=== PATIENT | male | born 1990 | race African-American/Black ===

== ENCOUNTER 2017-02-08 16:03 | Emergency (ER) | payer SELFPAY ==
[~2017-02-08] VITALS: Ht 182.9 cm; Wt 105.0 kg
[~2017-02-08 16:03] MED LIST: Z.0.NO CURRENT MEDS
[2017-02-08 16:05] VITALS: BP 139/86; PULSE 66; RESP 20; TEMP 98.4; O2SAT 99
--- NOTE | 2017-02-08 16:43 | PD ---
HPI Chief Complaint: Complaint Time Seen by Provider: 16:38 Travel History International Travel<30 days: No Contact w/Intl Traveler<30days: No Traveled to known affect area: No History of Present Illness HPI 26 her old male presents for evaluation of testicle pain. Symptoms started 4 months ago. He describes it as a squeezing pain which has been constant but is gradually getting worse. No obvious aggravating or relieving factors. He reports that the pain radiates into his lower back and lower abdomen. Denies dysuria, urethral discharge, nausea or vomiting, fevers or chills. He reports that he was seen about this issue in an emergency room in [place] and had an x- ray of his lower back as well as "STD testing" which was all normal. He reports that he has not been sexually active in approximately 3 months prior to that he had 2 different partners. [facility] Social History Alcohol Use: No Tobacco Use: No Allergies-Medications (Allergen,Severity, Reaction): Coded Allergies: Sulfa (Verified Allergy, Intermediate, JUNITO, 08/02/06) Reported Meds & Prescriptions Reported Meds & Active Scripts Active Reported No Current Meds (Miscellaneous Medication) [facility] [place] Review of Systems Except as stated in HPI: all other systems reviewed are Neg Physical Exam Narrative GENERAL: Well-developed well-nourished male in no acute distress SKIN: Warm and dry. HEAD: Atraumatic. Normocephalic. EYES: Pupils equal and round. No scleral icterus. No injection or drainage. ENT: No nasal bleeding or discharge. Mucous membranes pink and moist. NECK: Trachea midline. No JVD. CARDIOVASCULAR: Regular rate and rhythm. No murmur appreciated. RESPIRATORY: No accessory muscle use. Clear to auscultation. Breath sounds equal bilaterally. GASTROINTESTINAL: Abdomen soft, non-tender, nondistended. Hepatic and splenic margins not palpable. There is no testicle or scrotal pain. No palpable inguinal hernia. No urethral discharge. MUSCULOSKELETAL: No obvious deformities. There is no tenderness to palpation of the lower back or the paravertebral musculature. NEUROLOGICAL: Awake and alert. No obvious cranial nerve deficits. Motor grossly within normal limits. Normal speech. Data Data Last Documented VS Vital Signs Date Time Temp Pulse Resp B/P Pulse Ox O2 Delivery O2 Flow Rate FiO2 02/08/17 16:05 98.4 66 20 139/86 99 Orders Urinalysis - C+S If Indicated (02/08/17 16:51) Us Testicles W Doppler (02/08/17 16:51) Labs Laboratory Tests Test 02/08/17 17:05 Urine Color LIGHT-YELLOW Urine Turbidity CLEAR Urine pH 6.5 Urine Specific [place] 1.010 Urine Protein NEG mg/dL Urine Glucose (UA) NEG mg/dL Urine Ketones NEG mg/dL Urine Occult Blood NEG Urine Nitrite NEG Urine Bilirubin NEG Urine Urobilinogen LESS THAN 2.0 MG/DL Urine Leukocyte Esterase NEG Urine RBC LESS THAN 1 /hpf Urine WBC 2 /hpf Microscopic Urinalysis Comment CULT NOT INDICATED MDM Medical Decision Making Medical Screen Exam Complete: Yes Emergency Medical Condition: Yes Medical Record Reviewed: Yes Interpretation(s) CONCLUSION: 1. Bilateral varicoceles, small on the right and moderate to large on the left. 2. Normal testes. No torsion. Differential Diagnosis Epididymitis, orchitis, testicular torsion, inguinal hernia Narrative Course 26 year old male presents with a squeezing pain in both testicles that radiates into the lower abdomen and back the past 4 months. Physical examination is reassuring. He has no tenderness to palpation of the back, abdomen or testicles or scrotum. No obvious abnormalities. Urinalysis was unremarkable. Ultrasound of the scrotum reveals bilateral varicoceles, left greater than right. This could be the etiology of this patient's chronic discomfort. Recommended outpatient follow-up with a urologist. He was given a copy of his ultrasound report. Diagnosis Primary Impression: Bilateral varicoceles Referrals: Urologist Additional Instructions: Follow-up with a urologist. Take Tylenol or Motrin for discomfort. Return for any emergent medical conditions. Med/Other Pt SpecificInfo: No Change to Meds Disposition: 01 DISCHARGE HOME Condition: Stable Steven Ahn Feb 08, 2017 16:43
[2017-02-08 17:29] LABS: BLOOD, URINE NEG (NEG); GLUCOSE,URINE NEG (NEG); KETONE, URINE NEG (NEG); NITRITE,URINE NEG (NEG); PH, URINE 6.5 (5.0-8.5); URINE COLOR LIGHT-YELLOW (YELLW/STRAW)
[2017-02-08 17:52] LABS: COMMENT (UR) CULT NOT INDICATED; CULTURE IF INDICATED CULT NOT INDICATED
--- NOTE | 2017-02-08 18:09 | RADRPT ---
EXAM DATE/TIME: 02/08/2017 17:18 [place] COMPARISON: No previous studies available for comparison. INDICATIONS : Testicular pain. MEDICAL HISTORY : Testicular pain. SURGICAL HISTORY : No known previous surgical history. ENCOUNTER: Initial ACUITY: 2 days PAIN SCORE: 8/10 LOCATION: Bilateral scrotum. MEASUREMENTS: RIGHT TESTICLE: 3.2 x 2.4 x 1.9cm LEFT TESTICLE: 3.1 x 2.6 x 1.8cm FINDINGS: RIGHT TESTICLE: Homogeneous echotexture without intra or extratesticular mass. Blood flow is symmetric and within no rmal limits. No hydrocele. There is a small varicocele. Epididymis is within normal limits. LEFT TESTICLE: Homogeneous echotexture without intra or extratesticular mass. Blood flow is symmetric and within no rmal limits. No hydrocele. There is a moderate to large varicocele. Epididymis is within normal limi ts. SCROTUM: Within normal limits. CONCLUSION: 1. Bilateral varicoceles, small on the right and moderate to large on the left. 2. Normal testes. No torsion. Ebenezer Valdivia MD on February 08, 2017 at 18:07 Board Certified Radiologist. This report was verified electronically.
[2017-02-08 18:44] VITALS: BP 119/69
== END 2017-02-08 18:45 | disposition home or self-care (01) ==
LOC: NETRI 16:03
DX: I86.1 Scrotal varices (principal)
CPT/HCPCS: 76870; 81001; 93975

== ENCOUNTER 2017-06-04 08:14 | Inpatient (IN) | payer SELFPAY ==
[2017-06-04] VITALS (9 sets, daily range): BP systolic 148–162; BP diastolic 81–102; PULSE 62–102; RESP 16–21; TEMP 97.8–98.4; O2SAT 93–100
[~2017-06-04] VITALS: Ht 185.4 cm; Wt 121.0 kg
[2017-06-04] MEDS ORDERED: SODIUM CHLOR 0.9% 1000 ML INJ 1,000 ML IV SCH ×2 (08:29→09:42)
[2017-06-04] MEDS ORDERED: ONDANSETRON HCL 4 MG/2 ML VIAL IVP ONE (08:30)
[2017-06-04] MEDS ORDERED: SODIUM CHLORIDE 0.9% FLUSH 10 ML FLUSH IV FLUSH PRN (08:30)
--- NOTE | 2017-06-04 08:46 | PD ---
HPI Chief Complaint: Chest Pain Time Seen by Provider: 08:41 Travel History International Travel<30 days: No Contact w/Intl Traveler<30days: No Traveled to known affect area: No History of Present Illness HPI 27-year-old male patient with family history of father with diabetes, presents to the ER today for 2 weeks' history of frequent thirst, urinating more often, nausea, vomiting, feeling tired. He states it is getting so bad that he had to sit down the shower last night. He denies any fevers or any other issues. Modifying Factors: None Associated Signs & Symptoms: Nausea, vomiting, frequent urination, increase drinking, feeling tired Risk Factors: History of diabetes in the family PFSH Social History Alcohol Use: No Tobacco Use: Yes Substance Use: No Allergies-Medications (Allergen,Severity, Reaction): Coded Allergies: Sulfa (Verified Allergy, Intermediate, JUNITO, 06/04/17) Reported Meds & Prescriptions Reported Meds & Active Scripts Active No Active Prescriptions or Reported Medications Review of Systems Except as stated in HPI: all other systems reviewed are Neg Physical Exam Narrative GENERAL: Well-developed young after [place] male patient currently in moderate distress. Awake and oriented 3. SKIN: Focused skin assessment warm/dry. HEAD: Atraumatic. Normocephalic. EYES: Pupils equal and round. No scleral icterus. No injection or drainage. ENT: No nasal bleeding or discharge. Mucous membranes pink and dry. NECK: Trachea midline. No JVD. CARDIOVASCULAR: Regular rate and rhythm. No murmur appreciated. RESPIRATORY: No accessory muscle use. Clear to auscultation. Breath sounds equal bilaterally. GASTROINTESTINAL: Abdomen soft, non-tender, nondistended. Hepatic and splenic margins not palpable. MUSCULOSKELETAL: No obvious deformities. No clubbing. No cyanosis. No edema. NEUROLOGICAL: Awake and alert. No obvious cranial nerve deficits. Motor grossly within normal limits. Normal speech. PSYCHIATRIC: Appropriate mood and affect; insight and judgment normal. Data Data Last Documented VS Vital Signs Date Time Temp Pulse Resp B/P Pulse Ox O2 Delivery O2 Flow Rate FiO2 06/04/17 08:34 97 Room Air 06/04/17 08:16 97.8 62 20 162/95 Orders Complete Blood Count With Diff (06/04/17 08:29) Comprehensive Metabolic Panel (06/04/17 08:29) Lipase (06/04/17 08:29) Urinalysis - C+S If Indicated (06/04/17 08:29) Iv Access Insert/Monitor (06/04/17 08:29) Ecg Monitoring (06/04/17 08:29) Oximetry (06/04/17 08:29) Ondansetron Inj (Zofran Inj) (06/04/17 08:30) Sodium Chlor 0.9% 1000 Ml Inj (Ns 1000 M (06/04/17 08:29) Sodium Chloride 0.9% Flush (Ns Flush) (06/04/17 08:30) Electrocardiogram (06/04/17 08:29) Beta Hydroxybutyrate (Acetone) (06/04/17 08:35) Drug Enforcement Administration Agent / Telemetry [email or web address] (06/04/17 09:42) ^ Insert Iv (06/04/17 09:42) Diet Npo (06/04/17 Breakfast) Sodium Chlor 0.9% 1000 Ml Inj (Ns 1000 M (06/04/17 09:42) Dext 5%-Nacl 0.9% 1000 Ml Inj (D5w-Ns 10 (06/04/17 09:42) Insulin Human Regular Inj (Novolin R Inj (06/04/17 09:45) Insulin Regular (Iv Infusion) (Novolin R (06/04/17 09:45) Potassium Chlor 40 Meq Premix (Kcl 40 Me (06/04/17 09:45) Potassium Chlor 40 Meq Premix (Kcl 40 Me (06/04/17 09:45) Potassium Chlor 20 Meq Premix (Kcl 20 Me (06/04/17 09:45) Potassium Chlor 20 Meq Premix (Kcl 20 Me (06/04/17 09:45) Potassium Chlor 20 Meq Premix (Kcl 20 Me (06/04/17 09:45) Potassium Chlor 20 Meq Premix (Kcl 20 Me (06/04/17 09:45) Potassium Chlor 20 Meq Premix (Kcl 20 Me (06/04/17 09:45) Potassium Chlor 20 Meq Premix (Kcl 20 Me (06/04/17 09:45) Sodium Bicarbonate 8.4% Inj (Sodium Bica (06/04/17 09:45) Sodium Bicarbonate 8.4% Inj (Sodium Bica (06/04/17 09:45) Sodium Phosphate Inj (Sodium Phosphate I (06/04/17 09:45) Hemoglobin (Hgb) A1c (06/04/17 09:42) Basic Metabolic Panel (Bmp) (06/04/17 14:42) Basic Metabolic Panel (Bmp) (06/04/17 20:42) Basic Metabolic Panel (Bmp) (06/05/17 02:42) Basic Metabolic Panel (Bmp) (06/05/17 08:42) Magnesium (Mg) (06/04/17 14:42) Magnesium (Mg) (06/04/17 20:42) Magnesium (Mg) (06/05/17 02:42) Magnesium (Mg) (06/05/17 08:42) Phosphorus (Po4) (06/04/17 14:42) Phosphorus (Po4) (06/04/17 20:42) Phosphorus (Po4) (06/05/17 02:42) Phosphorus (Po4) (06/05/17 08:42) Beta Hydroxybutyrate (Acetone) (06/04/17 20:42) Beta Hydroxybutyrate (Acetone) (06/05/17 08:42) Arterial Blood Gas (Abg) (06/04/17 09:45) Vital Signs (Adult) [email or web address].[email or web address] (06/04/17 10:13) Ondansetron Inj (Zofran Inj) (06/04/17 10:15) Hemoglobin (Hgb) A1c (06/04/17 10:14) Consult Optomechanical Engineer (06/04/17 ) Admit Order (Ed Use Only) (06/04/17 10:15) Labs Laboratory Tests Test 06/04/17 06/04/17 08:35 09:59 White Blood Count 9.0 TH/MM3 Red Blood Count 6.09 MIL/MM3 Hemoglobin 17.2 GM/DL Hematocrit 54.0 % Mean Corpuscular Volume 88.7 FL Mean Corpuscular Hemoglobin 28.3 PG Mean Corpuscular Hemoglobin 31.9 % Concent Red Cell Distribution Width 14.2 % Platelet Count 230 TH/MM3 Mean Platelet Volume 9.9 FL Neutrophils (%) (Auto) 66.7 % Lymphocytes (%) (Auto) 24.5 % Monocytes (%) (Auto) 7.9 % Eosinophils (%) (Auto) 0.2 % Basophils (%) (Auto) 0.7 % Neutrophils # (Auto) 6.0 TH/MM3 Lymphocytes # (Auto) 2.2 TH/MM3 Monocytes # (Auto) 0.7 TH/MM3 Eosinophils # (Auto) 0.0 TH/MM3 Basophils # (Auto) 0.1 TH/MM3 CBC Comment DIFF FINAL Differential Comment Urine Color LIGHT-YELLOW Urine Turbidity CLEAR Urine pH 5.0 Urine Specific [place] 1.031 Urine Protein NEG mg/dL Urine Glucose (UA) 1000 mg/dL Urine Ketones 40 mg/dL Urine Occult Blood NEG Urine Nitrite NEG Urine Bilirubin NEGATIVE Urine Urobilinogen LESS THAN 2.0 MG/DL Urine Leukocyte Esterase NEGATIVE Urine RBC LESS THAN 1 /hpf Urine WBC 1 /hpf Microscopic Urinalysis Comment CULT NOT INDICATED Sodium Level 129 MEQ/L Potassium Level 4.1 MEQ/L Chloride Level 90 MEQ/L Carbon Dioxide Level 24.0 MEQ/L Anion Gap 15 MEQ/L Blood Urea Nitrogen 12 MG/DL Creatinine 1.46 MG/DL Estimat Glomerular Filtration 70 ML/MIN Rate Random Glucose 839 MG/DL Calcium Level 9.9 MG/DL Total Bilirubin 0.9 MG/DL Aspartate Amino Transf 18 U/L (AST/SGOT) Alanine Aminotransferase 49 U/L (ALT/SGPT) Alkaline Phosphatase 184 U/L Total Protein 9.2 GM/DL Albumin 4.5 GM/DL Lipase 126 U/L B-Hydroxybutyrate 4.41 MMOL/L Blood Gas Puncture Site LT RADIAL Blood Gas Patient Temperature 98.6 Blood Gas HCO3 19 mmol/L Blood Gas Base Excess -5.7 mmol/L Blood Gas Oxygen Saturation 95 % Arterial Blood pH 7.36 Arterial Blood Partial 34 mmHg Pressure CO2 Arterial Blood Partial 96 mmHG Pressure O2 Arterial Blood Oxygen Content 21.8 Vol % Arterial Blood 1.4 % Carboxyhemoglobin Arterial Blood Methemoglobin 0.8 % Blood Gas Hemoglobin 16.3 G/DL Oxygen Delivery Device ROOM AIR Blood Gas Inspired Oxygen 21 % [facility] Medical Decision Making Medical Screen Exam Complete: Yes Emergency Medical Condition: Yes Medical Record Reviewed: Yes Interpretation(s) EKG shows normal sinus rhythm with sinus arrhythmia at a rate of 74 beats per minutes. Laboratory Tests Test 06/04/17 06/04/17 08:35 09:59 Red Blood Count 6.09 MIL/MM3 (4.50-5.90) Hemoglobin 17.2 GM/DL (13.0-17.0) Hematocrit 54.0 % (39.0-51.0) Mean Corpuscular Hemoglobin 31.9 % Concent (32.0-36.0) Urine Glucose (UA) 1000 mg/dL (NEG) Urine Ketones 40 mg/dL (NEG) Sodium Level 129 MEQ/L (136-145) Chloride Level 90 MEQ/L (98-107) Creatinine 1.46 MG/DL (0.60-1.30) Estimat Glomerular Filtration 70 ML/MIN (>89) Rate Random Glucose 839 MG/DL (74-106) Alkaline Phosphatase 184 U/L (45-117) Total Protein 9.2 GM/DL (6.4-8.2) B-Hydroxybutyrate 4.41 MMOL/L (0.00-0.39) Blood Gas HCO3 19 mmol/L (22-26) Blood Gas Base Excess -5.7 mmol/L (-2-2) Arterial Blood pH 7.36 (7.380-7.420) Arterial Blood Partial 34 mmHg (38-42) Pressure CO2 Arterial Blood Oxygen Content 21.8 Vol % (12.0-20.0) Blood Gas Hemoglobin 16.3 G/DL (12.0-16.0) Differential Diagnosis Nausea, vomiting, general weaknesshyperglycemia versus DKA versus electrolyte abnormalities versus dehydration versus gastroenteritis versus other acute intra -abdominal processes Narrative Course EKG did not show significant dysrhythmias other than sinus arrhythmia. Lab work shows significant hyperglycemia and ketone elevation indicative of DKA. DKA protocol and IV fluids initiated in the ER. At this point, my plan would be to admit the patient for further treatment for DKA and he wants the diabetes. Case was discussed with Dr. Franklin for admission. Aggregate critical care time was 30 minutes. Time to perform other separately billable procedures was not included in the critical care time. My time did not include minutes spent treating any other patients simultaneously or on activities that did not directly contribute to the patient's treatment. The services I provided to this patient were to treat and/or prevent clinically significant deterioration that could result in: Worsening mental acidosis, dysrhythmias, I provided critical care services requiring my management, as noted below: Chart data review, documentation time, medication orders and management, vital sign assessments/reviewing monitor data, ordering and reviewing lab tests, ordering and interpreting/reviewing x-rays and diagnostic studies, care of the patient and discussion of the patient with the admitting physicians. Diagnosis Primary Impression: DKA (diabetic ketoacidoses) Additional Impression: Diabetes mellitus, new onset Admitting Information Admitting Physician Requests: Admit Scripts No Active Prescriptions or Reported Meds Nelia Campoverde MD Jun 04, 2017 08:46
[2017-06-04 08:52] LABS: BASOPHIL # 0.1 TH/MM3 (0-0.2); BASOPHIL % 0.7 % (0.0-2.0); EOSINOPHIL % 0.2 % (0.0-4.0); HEMO FLAGS DIFF FINAL; LYMPH % 24.5 % (9.0-44.0); LYMPHOCYTE # 2.2 TH/MM3 (1.0-4.8); MEAN CELL VOLUME 88.7 FL (80.0-100.0); MEAN CORPUSCULAR HEMOGLOBIN 28.3 PG (27.0-34.0); MEAN CORPUSCULAR HGB CONC 31.9 % (32.0-36.0); MONO % 7.9 % (0.0-8.0); NEUT % 66.7 % (16.0-70.0); PLATELET COUNT 230 TH/MM3 (150-450); RED BLOOD COUNT 6.09 MIL/MM3 (4.50-5.90); RED CELL DISTRIBUTION WIDTH 14.2 % (11.6-17.2)
[2017-06-04 09:28] LABS: COMMENT (UR) CULT NOT INDICATED; CULTURE IF INDICATED CULT NOT INDICATED; GLUCOSE,URINE 1000 mg/dL (NEG); KETONE, URINE 40 mg/dL (NEG); URINE COLOR LIGHT-YELLOW (YELLW/STRAW)
[2017-06-04 09:29] LABS: BLOOD, URINE NEG (NEG); NITRITE,URINE NEG (NEG)
[2017-06-04 09:31] LABS: ALKALINE PHOSPHATASE 184 U/L (45-117); ALT (GPT) 49 U/L (12-78); ANION GAP 15 MEQ/L (5-15); AST (GOT) 18 U/L (15-37); BETA-HYDROXYBUTYRATE 4.41 MMOL/L (0.00-0.39); BLOOD UREA NITROGEN 12 MG/DL (7-18); CHLORIDE 90 MEQ/L (98-107); GLOMERULAR FILTRATION RATE 70 ML/MIN (>89); SODIUM (NA) 129 MEQ/L (136-145); TOTAL BILIRUBIN ADULT 0.9 MG/DL (0.2-1.0)
[2017-06-04 09:33] LABS: POTASSIUM 4.1 MEQ/L (3.5-5.1)
[2017-06-04] MEDS ORDERED: DEXT 5%-NACL 0.9% 1000 ML INJ 1,000 ML IV SCH (09:42)
[2017-06-04] MEDS ORDERED: INSULIN HUMAN REGULAR 1,000 UNITS/10 ML VIAL IV PUSH ONE (09:45)
[2017-06-04] MEDS ORDERED: POTASSIUM CHLOR 20 MEQ PREMIX 100 ML IV PRN ×6 (09:45)
[2017-06-04] MEDS ORDERED: SODIUM PHOSPHATE INJ 15 MMOL in SODIUM CHLORIDE 0.9% INJ 100 ML IV PRN (09:45)
[2017-06-04] MEDS ORDERED: SODIUM BICARBONATE 8.4% SOLN 50 MEQ/50 ML VIAL IV PRN ×2 (09:45)
[2017-06-04] MEDS ORDERED: INSULIN REGULAR (IV INFUSION) 100 UNITS in SODIUM CHLORIDE 0.9% INJ 99 ML IV SCH (09:45)
[2017-06-04] MEDS ORDERED: POTASSIUM CHLOR 40 MEQ PREMIX 100 ML IV PRN ×2 (09:45)
[2017-06-04 10:09] LABS: BLOOD GAS BASE EXCESS -5.7 mmol/L (-2-2); BLOOD GAS CARBOXYHEMOGLOBIN 1.4 % (0-4); BLOOD GAS HCO3 19 mmol/L (22-26); BLOOD GAS METHEMOGLOBIN 0.8 % (0-2); BLOOD GAS O2 HGB SATURATION 95 % (90-100); BLOOD GAS OXYGEN CONTENT 21.8 Vol % (12.0-20.0); BLOOD GAS PCO2 34 mmHg (38-42); BLOOD GAS PO2 96 mmHG (61-120); BLOOD GAS TOTAL HGB 16.3 G/DL (12.0-16.0); TEMP CORR TO 98.6
[2017-06-04 10:10] LABS: CRITICAL VALUE NO; DRAW SITE LT RADIAL; FIO2 21 %; NUMBER OF ARTERIAL PUNCTURES 1; OXYGEN DEVICE ROOM AIR; STAT YES
[2017-06-04] MEDS ORDERED: ONDANSETRON HCL 4 MG/2 ML VIAL IV PUSH PRN (10:15)
--- NOTE | 2017-06-04 10:56 | HHI.HP ---
[facility] Primary [facility] Physician No Primary Care Physician Admission Diagnosis DKA/new onset diabetes Diagnoses: (1) DKA (diabetic ketoacidoses) Diagnosis: Principal (2) Diabetes mellitus, new onset Diagnosis: Principal Chief Complaint: ' I feel weak'. Travel History International Travel<30 Days: No Contact w/Intl Traveler <30 Da: No Traveled to Known Affected Are: No History of Present Illness patient is a 27 y/o male with no significant past medical history who presented to ER with generalized weakness. he says that over the past two weeks he's been feeling thirsty all the time and had urinary frequency. he's lost about ten pounds over the past two-three weeks.he says that he's been feeling so weak that he couldn't stand up in the shower today. he had some blurred vision earlier.he had mild abdominal pain and nausea. he denies any history of diabetes. Review of Systems Constitutional: COMPLAINS OF: Fatigue, DENIES: Fever, Weight loss, Chills, Night Sweats Eyes: COMPLAINS OF: Blurred vision, DENIES: Diplopia, Vision loss, Double Vision Ears, nose, mouth, throat: DENIES: Tinnitus, Vertigo, Throat pain, Epistaxis Respiratory: DENIES: Apneas, Cough, Snoring, Wheezing, Hemoptysis, Sputum production, Shortness of breath Cardiovascular: DENIES: Chest pain, Palpitations, Syncope, Dyspnea on Exertion , PND, Lower Extremity Edema, Orthopnea, Claudication Gastrointestinal: COMPLAINS OF: Abdominal pain, Nausea, DENIES: Black stools, Bloody stools, Constipation, Diarrhea, Vomiting, Difficulty Swallowing, Anorexia Genitourinary: DENIES: Urinary frequency, Urgency, Hematuria, Dysuria Musculoskeletal: DENIES: Joint pain, Muscle aches, Stiffness, Joint Swelling Integumentary: DENIES: Rash Neurologic: DENIES: Abnormal gait, Headache, Localized weakness, Paresthesias, Seizures, Speech Problems, Tremor, Poor Balance Psychiatric: DENIES: Anxiety, Confusion, Mood changes, Depression, Hallucinations, Agitation, Suicidal Ideation, Homicidal Ideation, Delusions Past Family Social History Past Medical History not significant. Past Surgical History none reported. Reported Medications none. Allergies: Coded Allergies: Sulfa (Verified Allergy, Intermediate, BHANULLS, 06/04/17) Active Ordered Medications Current Medications Ondansetron HCl 4 mg 4 mg ONCE ONCE IVP Last administered on 06/04/17 08:45; Start 06/04/17 at 08:30; Stop 06/04/17 at 08:31; Status DC Sodium Chloride (NS 1000 ml Inj) 1,000 ml @ 1,000 mls/hr Q1H IV Last administered on 06/04/17 08:46; Start 06/04/17 at 08:29; Stop 06/04/17 at 09:28 ; Status DC Sodium Chloride 2 ml 2 ml UNSCH PRN IV FLUSH FLUSH AFTER USING IV ACCESS Last administered on 06/04/17 08:46; Start 06/04/17 at 08:30 Sodium Chloride 1,000 ml @ 250 mls/hr Q4H IV ; Start 06/04/17 at 09:42 Dextrose/Sodium Chloride (D5W-NS 1000 ml Inj) 1,000 ml @ 200 mls/hr Q5H IV ; Start 06/04/17 at 09:42 Insulin Human Regular 6 units 6 units BOLUS ONCE IV PUSH ; Start 06/04/17 at 09 :45; Stop 06/04/17 at 09:46; Status DC Insulin Human Regular 100 units/ Sodium Chloride 100 ml @ 0 mls/hr TITRATE IV ; Start 06/04/17 at 09:45 Potassium Chloride 100 ml @ 100 mls/hr Q1H PRN IV SEE LABEL COMMENTS; Start at 09:45 Potassium Chloride 100 ml @ 50 mls/hr Q2H PRN IV SEE LABEL COMMENTS; Start 09/11 at 09:45 Potassium Chloride 100 ml @ 100 mls/hr Q1H PRN IV SEE LABEL COMMENTS; Start at 09:45 Potassium Chloride 100 ml @ 100 mls/hr Q1H PRN IV SEE LABEL COMMENTS; Start at 09:45 Potassium Chloride 100 ml @ 50 mls/hr Q2H PRN IV SEE LABEL COMMENTS; Start 09/11 at 09:45 Potassium Chloride 100 ml @ 50 mls/hr Q2H PRN IV SEE LABEL COMMENTS; Start 09/11 at 09:45 Potassium Chloride 100 ml @ 50 mls/hr Q2H PRN IV SEE LABEL COMMENTS; Start 09/11 at 09:45 Potassium Chloride (KCl 20 Meq Premix Inj) 100 ml @ 50 mls/hr Q2H PRN IV SEE LABEL COMMENTS; Start 06/04/17 at 09:45 Sodium Bicarbonate (Sodium Bicarbonate 8.4% Inj) 100 meq UNSCH PRN IV SEE LABEL COMMENTS; Start 06/04/17 at 09:45 Sodium Bicarbonate 50 meq 50 meq UNSCH PRN IV SEE LABEL COMMENTS; Start at 09:45 Sodium Phosphate/ Sodium Chloride (Sodium Phosphate Inj/NS Inj) 105 ml @ 25 mls /hr UNSCH PRN IV SEE LABEL COMMENTS; Start 06/04/17 at 09:45 Ondansetron HCl (Zofran Inj) 4 mg Q8H PRN IV PUSH NAUSEA; Start 06/04/17 at 10: 15 Family History diabetes in father. Social History smokes 2-3 cigars a day- no illicit drug abuse.doesn't drink. Physical Exam Vital Signs Vital Signs Date Time Temp Pulse Resp B/P Pulse Ox O2 Delivery O2 Flow Rate FiO2 06/04/17 08:34 97 Room Air 06/04/17 08:16 97.8 62 20 162/95 98 Room Air Physical Exam GENERAL: This is a well-nourished, well-developed patient, in no apparent distress. SKIN: No rashes, ecchymoses or lesions. Cool and dry. HEAD: Atraumatic. Normocephalic. No temporal or scalp tenderness. EYES: Pupils equal round and reactive. Extraocular motions intact. No scleral icterus. No injection or drainage. ENT: dry oral mucosa NECK: Trachea midline. No JVD or lymphadenopathy. Supple, nontender, no meningeal signs. CARDIOVASCULAR: Regular rate and rhythm without murmurs, gallops, or rubs. RESPIRATORY: Clear to auscultation. Breath sounds equal bilaterally. No wheezes , rales, or rhonchi. GASTROINTESTINAL: Abdomen soft, non-tender, nondistended. No hepato-splenomegaly , or palpable masses. No guarding. MUSCULOSKELETAL: Extremities without clubbing, cyanosis, or edema. No joint tenderness, effusion, or edema noted. No calf tenderness. Negative Homans sign bilaterally. NEUROLOGICAL: Awake and alert. Cranial nerves II through XII intact. Motor and sensory grossly within normal limits. Five out of 5 muscle strength in all muscle groups. Normal speech. Laboratory Laboratory Tests Test 06/04/17 06/04/17 08:35 09:59 White Blood Count 9.0 Red Blood Count 6.09 Hemoglobin 17.2 Hematocrit 54.0 Mean Corpuscular Volume 88.7 Mean Corpuscular Hemoglobin 28.3 Mean Corpuscular Hemoglobin 31.9 Concent Red Cell Distribution Width 14.2 Platelet Count 230 Mean Platelet Volume 9.9 Neutrophils (%) (Auto) 66.7 Lymphocytes (%) (Auto) 24.5 Monocytes (%) (Auto) 7.9 Eosinophils (%) (Auto) 0.2 Basophils (%) (Auto) 0.7 Neutrophils # (Auto) 6.0 Lymphocytes # (Auto) 2.2 Monocytes # (Auto) 0.7 Eosinophils # (Auto) 0.0 Basophils # (Auto) 0.1 CBC Comment DIFF FINAL Differential Comment Urine Color LIGHT-YELLOW Urine Turbidity CLEAR Urine pH 5.0 Urine Specific [place] 1.031 Urine Protein NEG Urine Glucose (UA) 1000 Urine Ketones 40 Urine Occult Blood NEG Urine Nitrite NEG Urine Bilirubin NEGATIVE Urine Urobilinogen LESS THAN 2.0 Urine Leukocyte Esterase NEGATIVE Urine RBC LESS THAN 1 Urine WBC 1 Microscopic Urinalysis Comment CULT NOT INDICATED Sodium Level 129 Potassium Level 4.1 Chloride Level 90 Carbon Dioxide Level 24.0 Anion Gap 15 Blood Urea Nitrogen 12 Creatinine 1.46 Estimat Glomerular Filtration 70 Rate Random Glucose 839 Calcium Level 9.9 Total Bilirubin 0.9 Aspartate Amino Transf 18 (AST/SGOT) Alanine Aminotransferase 49 (ALT/SGPT) Alkaline Phosphatase 184 Total Protein 9.2 Albumin 4.5 Lipase 126 B-Hydroxybutyrate 4.41 Blood Gas Puncture Site LT RADIAL Blood Gas Patient Temperature 98.6 Blood Gas HCO3 19 Blood Gas Base Excess -5.7 Blood Gas Oxygen Saturation 95 Arterial Blood pH 7.36 Arterial Blood Partial 34 Pressure CO2 Arterial Blood Partial 96 Pressure O2 Arterial Blood Oxygen Content 21.8 Arterial Blood 1.4 Carboxyhemoglobin Arterial Blood Methemoglobin 0.8 Blood Gas Hemoglobin 16.3 Oxygen Delivery Device ROOM AIR Blood Gas Inspired Oxygen 21 Result Diagram: 06/04/17 0835 06/04/1735 Assessment and Plan Assessment and Plan A/P - DKA/ newly diagnosed diabetes mellitus started on Insulin drip- check A1c and consult agricultural research technician -hyponatremia due to hyperglycemia- will monitor -acute kidney injury due to dehydration/ DKA; continue IV fluid and monitor the renal function -DVT prophylaxis with subq Lovenox Discussed Condition With ER physician, the patient and RN. Physician Certification 2 Midnight Certification Type: Admission for Inpatient Services Order for Inpatient Services The services are ordered in accordance with Medicare regulations or non- Medicare payer requirements, as applicable. In the case of services not specified as inpatient-only, they are appropriately provided as inpatient services in accordance with the 2-midnight benchmark. Estimated LOS (days): 2 days is the estimated time the patient will need to remain in the hospital, assuming treatment plan goals are met and no additional complications. Post-Hospital Plan: Home Problem Qualifiers (1) DKA (diabetic ketoacidoses): Delores Virk MD Jun 04, 2017 10:56
[2017-06-04] MEDS: ENOXAPARIN SODIUM 40 MG/0.4 ML SYRINGE SQ SCH (12:00)
--- NOTE | 2017-06-04 14:08 | EKG ---
Date Performed: 06/04/2017 Time Performed: 08:42:35 PTAGE: 27 years EKG: Sinus rhythm WITH SINUS ARRHYTHMIA POSSIBLE LEFT ATRIAL ENLARGEMENT POSSIBLE RIGHT VENTRICULAR CONDUCTION DELAY S T ELEVATION CONSISTENT WITH INJURY, PERICARDITIS, OR EARLY REPOLARIZATION ST DEVIATION AND MODERATE T -WAVE ABNORMALITY, CONSIDER ANTEROLATERAL ISCHEMIA ABNORMAL ECG CLINICAL CORRELATION IS STRONGLY MAX MMENDED. NO PREVIOUS TRACING DOCTOR: Kale Monteiro Interpretating Date/Time 06/04/2017 14:06:20
[2017-06-04 17:06] LABS: BICARBONATE 22.1 MEQ/L (21.0-32.0); MAGNESIUM 2.2 MG/DL (1.5-2.5); POTASSIUM 3.3 MEQ/L (3.5-5.1)
[2017-06-04] MEDS ORDERED: GLUCAGON 1 MG/ML VIAL OTHER PRN (18:45)
[2017-06-04] MEDS ORDERED: DEXTROSE 50% IN WATER 50 ML VIAL(D50) IV PRN (18:45)
[2017-06-04] MEDS ORDERED: POTASSIUM CHLOR 20 MEQ PREMIX 100 ML ONE (19:56)
[2017-06-04] MEDS: SODIUM CHLOR 0.9% 1000 ML INJ 1,000 ML IV SCH (20:39)
[2017-06-04] MEDS: INSULIN DETEMIR 100 UNITS/ML VIAL SQ SCH (20:40)
[2017-06-04] MEDS: INSULIN NovoLIN REGULAR SUPPLEMENTAL SCALE SQ SCH (21:00)
[2017-06-04] MEDS ORDERED: CHLORHEXIDINE GLUCONATE 2 % 1 PACK (2 CLOTHS)(extra cloths) TOPICAL PRN (23:00)
[2017-06-05] VITALS (12 sets, daily range): BP systolic 117–151; BP diastolic 73–96; PULSE 68–92; RESP 16–31; TEMP 97.7–98.5; O2SAT 98–100
[2017-06-05] MEDS: SODIUM CHLOR 0.9% 1000 ML INJ 1,000 ML IV SCH ×3 (03:27→18:45)
[2017-06-05] MEDS: CHLORHEXIDINE GLUCONATE 2 % 1 PACK (2 CLOTHS)(taper/protocol) TOPICAL SCH (04:00)
[2017-06-05] MEDS: INSULIN NovoLIN REGULAR SUPPLEMENTAL SCALE SQ SCH ×4 (06:35→20:25)
[2017-06-05] MEDS: INSULIN DETEMIR 100 UNITS/ML VIAL SQ SCH (07:52)
--- NOTE | 2017-06-05 08:44 | HHI.PR ---
Subjective Remarks resting comfortably with no distress. denies pain, nausea or vomiting. feels much better and now wants to go home. d/w the RN and no acute issues over night. Objective Vitals Vital Signs Date Time Temp Pulse Resp B/P Pulse Ox O2 Delivery O2 Flow Rate FiO2 06/05/17 04:00 98.0 68 17 132/73 100 06/05/17 00:00 98.2 77 16 151/96 100 06/04/17 20:00 97.9 88 18 150/98 100 06/04/17 19:04 100 21 06/04/17 16:00 98.4 95 18 154/81 99 06/04/17 15:00 102 06/04/17 12:42 100 06/04/17 12:00 98.0 93 16 152/94 93 06/04/17 11:00 98 21 148/102 100 Room Air I/O 06/04/17 06/04/17 06/04/17 06/05/17 06/05/17 06/05/17 07:00 15:00 23:00 07:00 15:00 23:00 Intake Total 800 ml 1400 ml 793 ml Output Total 1235 ml 350 ml 400 ml Balance -435 ml 1050 ml 393 ml Intake Oral 120 ml 420 ml 240 ml IV Total 680 ml 980 ml 553 ml Output Urine Total 1235 ml 350 ml 400 ml # Voids 2 # Bowel Movements 0 0 0 Result Diagram: 06/04/17 0835 06/04/17 1631 Objective Remarks GENERAL: This is a well-nourished, well-developed patient, in no apparent distress. CARDIOVASCULAR: Regular rate and irregular rhythm without murmurs, gallops, or rubs. RESPIRATORY: Clear to auscultation. Breath sounds equal bilaterally. No wheezes , rales, or rhonchi. GASTROINTESTINAL: Abdomen soft, non-tender, nondistended. Normal, active bowel sounds MUSCULOSKELETAL: Extremities without clubbing, cyanosis, or edema. NEURO: Alert & Oriented x4 to person, place, time, situation. Moves all ext x4 Procedures none Medications and IVs Current Medications Ondansetron HCl 4 mg 4 mg ONCE ONCE IVP Last administered on 06/04/17t 08:45; Start 06/04/17 at 08:30; Stop 06/04/17 at 08:31; Status DC Sodium Chloride (NS 1000 ml Inj) 1,000 ml @ 1,000 mls/hr Q1H IV Last administered on 06/04/17 08:46; Start 06/04/17 at 08:29; Stop 06/04/17 at 09:28 ; Status DC Sodium Chloride 2 ml 2 ml UNSCH PRN IV FLUSH FLUSH AFTER USING IV ACCESS Last administered on 06/04/17 08:46; Start 06/04/17 at 08:30 Sodium Chloride 1,000 ml @ 250 mls/hr Q4H IV Last administered on 06/04/17 11 :45; Start 06/04/17 at 09:42; Stop 06/04/17 at 18:50; Status DC Dextrose/Sodium Chloride (D5W-NS 1000 ml Inj) 1,000 ml @ 200 mls/hr Q5H IV Last administered on 06/04/17 14:30; Start 06/04/17 at 09:42; Stop 06/04/17 at 18:50; Status DC Insulin Human Regular 6 units 6 units BOLUS ONCE IV PUSH Last administered on 06/04/17 10:59; Start 06/04/17 at 09:45; Stop 06/04/17 at 18:50; Status DC Insulin Human Regular 100 units/ Sodium Chloride 100 ml @ 0 mls/hr TITRATE IV Last administered on 06/04/17 11:12; Start 06/04/17 at 09:45; Stop 06/04/17 at 18:50; Status DC Potassium Chloride 100 ml @ 100 mls/hr Q1H PRN IV SEE LABEL COMMENTS; Start at 09:45; Stop 06/04/17 at 18:50; Status DC Potassium Chloride 100 ml @ 50 mls/hr Q2H PRN IV SEE LABEL COMMENTS; Start 09/11 at 09:45; Stop 06/04/17 at 18:50; Status DC Potassium Chloride 100 ml @ 100 mls/hr Q1H PRN IV SEE LABEL COMMENTS; Start at 09:45; Stop 06/04/17 at 18:50; Status DC Potassium Chloride 100 ml @ 100 mls/hr Q1H PRN IV SEE LABEL COMMENTS; Start at 09:45; Stop 06/04/17 at 18:50; Status DC Potassium Chloride 100 ml @ 50 mls/hr Q2H PRN IV SEE LABEL COMMENTS; Start 09/11 at 09:45; Stop 06/04/17 at 18:50; Status DC Potassium Chloride 100 ml @ 50 mls/hr Q2H PRN IV SEE LABEL COMMENTS Last administered on 06/04/17 17:28; Start 06/04/17 at 09:45; Stop 06/04/17 at 18:50 ; Status DC Potassium Chloride 100 ml @ 50 mls/hr Q2H PRN IV SEE LABEL COMMENTS; Start 09/11 at 09:45; Stop 06/04/17 at 18:50; Status DC Potassium Chloride (KCl 20 Meq Premix Inj) 100 ml @ 50 mls/hr Q2H PRN IV SEE LABEL COMMENTS; Start 06/04/17 at 09:45; Stop 06/04/17 at 18:50; Status DC Sodium Bicarbonate (Sodium Bicarbonate 8.4% Inj) 100 meq UNSCH PRN IV SEE LABEL COMMENTS; Start 06/04/17 at 09:45; Stop 06/04/17 at 18:50; Status DC Sodium Bicarbonate 50 meq 50 meq UNSCH PRN IV SEE LABEL COMMENTS; Start at 09:45; Stop 06/04/17 at 18:50; Status DC Sodium Phosphate/ Sodium Chloride (Sodium Phosphate Inj/NS Inj) 105 ml @ 25 mls /hr UNSCH PRN IV SEE LABEL COMMENTS; Start 06/04/17 at 09:45; Stop 06/04/17 at 18:50; Status DC Ondansetron HCl (Zofran Inj) 4 mg Q8H PRN IV PUSH NAUSEA; Start 06/04/17 at 10: 15 Enoxaparin Sodium (Lovenox Inj) 40 mg Q24H SQ Last administered on 06/04/17 12 :00; Start 06/04/17 at 12:00 Insulin Detemir 15 units 15 units DAILY SQ Last administered on 06/05/17 07:52 ; Start 06/04/17 at 18:45 Sodium Chloride (NS 1000 ml Inj) 1,000 ml @ 125 mls/hr Q8H IV Last administered on 06/05/17 07:52; Start 06/04/17 at 18:45 Dextrose (D50w (Vial) Inj) 50 ml UNSCH PRN IV HYPOGLYCEMIA-SEE COMMENTS; Start 06/04/17 at 18:45 Glucagon (Glucagon Inj) 1 mg UNSCH PRN OTHER HYPOGLYCEMIA-SEE COMMENTS; Start 06/04/17 at 18:45 Insulin Human Regular 1 1 ACHS SLIDING SCALE SQ Last administered on 06:35; Start 06/04/17 at 21:00 Potassium Chloride (KCl 20 Meq Premix Inj) 100 ml @ As Directed STK-MED ONCE .ROUTE ; Start 06/04/17 at 19:56; Stop 06/04/17 at 19:57; Status DC Miscellaneous Information Patient in critical care unit? Ass... Q361D .XX ; Start 06/04/17 at 23:00 Chlorhexidine Gluconate (Chlorhexidine 2% Cloth) 3 pack DAILY@04 TOPICAL Last administered on 06/05/17t 04:00; Start 06/05/17 at 04:00; Stop 06/09/17 at 04:01 Chlorhexidine Gluconate (Chlorhexidine 2% Cloth) 3 pack UNSCH PRN TOPICAL HYGIENIC CARE; Start 06/04/17 at 23:00; Stop 06/09/17 at 22:57 A/P Assessment and Plan A/P - DKA/ newly diagnosed diabetes mellitus off the insulin drip since last night- started on levemir and sliding scale coverage. A1c to be followed up- consulted early childhood educator aide and supervisor/port director. -hyponatremia due to hyperglycemia- resolved. -acute kidney injury due to dehydration/ DKA; resolved. -DVT prophylaxis with subq Lovenox Discharge Planning likely dc home later this evening. see med list. had a detailed d/w the patient regarding the diabetes and insulin regimen. awaiting early childhood educator aide and supervisor/port director consults. d/w the RN. time spent 35 min. Delores Virk MD Jun 05, 2017 08:44
[2017-06-05] MEDS ORDERED: LEVEMIR SQ (08:46)
[2017-06-05] MEDS ORDERED: NOVOLOGP2 SQ (08:46)
--- NOTE | 2017-06-05 08:47 | HHI.DCPOC ---
Discharge Care Plan Diagnosis: (1) DKA (diabetic ketoacidoses) Your Health Problems Are: Fluctuating Blood Sugars Goals to Promote Your Health * To prevent worsening of your condition and complications * To maintain your health at the optimal level Directions to Meet Your Goals Take your medications as prescribed Follow your dietary instruction Follow activity as directed Keep your appointments as scheduled Take your immunizations and boosters as scheduled If your symptoms worsen call your PCP, if no PCP go to Urgent Care Center or Emergency Room Smoking is Dangerous to Your Health. Avoid second hand smoke Call the 24-hour hour crisis hotline for domestic abuse at Delores Virk MD Jun 05, 2017 08:47
--- NOTE | 2017-06-05 08:47 | HHI.DS ---
Discharge Summary Admission Date Jun 04, 2017 at 10:16 Discharge Date: Jun 05, 2017 Admitting Diagnosis DKA/new onset diabetes (1) DKA (diabetic ketoacidoses) ICD Code: E13.10 Diagnosis: Principal (2) Diabetes mellitus, new onset ICD Code: E11.9 Diagnosis: Principal Procedures none Brief History - From Admission patient is a 27 y/o male with no significant past medical history who presented to ER with generalized weakness. he says that over the past two weeks he's been feeling thirsty all the time and had urinary frequency. he's lost about ten pounds over the past two-three weeks.he says that he's been feeling so weak that he couldn't stand up in the shower today. he had some blurred vision earlier.he had mild abdominal pain and nausea. he denies any history of diabetes. CBC/BMP: 06/04/17 0835 06/04/17 1631 Significant Findings Laboratory Tests Test 06/04/17 06/04/17 06/04/17 06/05/17 08:35 09:59 16:31 04:12 Red Blood Count 6.09 MIL/MM3 (4.50-5.90) Hemoglobin 17.2 GM/DL (13.0-17.0) Hematocrit 54.0 % (39.0-51.0) Mean Corpuscular Hemoglobin 31.9 % Concent (32.0-36.0) Urine Glucose (UA) 1000 mg/dL (NEG) Urine Ketones 40 mg/dL (NEG) Sodium Level 129 MEQ/L (136-145) Chloride Level 90 MEQ/L 111 MEQ/L (98-107) (98-107) Creatinine 1.46 MG/DL (0.60-1.30) Estimat Glomerular Filtration 70 ML/MIN (>89) Rate Random Glucose 839 MG/DL 177 MG/DL (74-106) (74-106) Alkaline Phosphatase 184 U/L (45-117) Total Protein 9.2 GM/DL (6.4-8.2) B-Hydroxybutyrate 4.41 MMOL/L 2.69 MMOL/L (0.00-0.39) (0.00-0.39) Blood Gas HCO3 19 mmol/L (22-26) Blood Gas Base Excess -5.7 mmol/L (-2-2) Arterial Blood pH 7.36 (7.380-7.420) Arterial Blood Partial 34 mmHg (38-42) Pressure CO2 Arterial Blood Oxygen Content 21.8 Vol % (12.0-20.0) Blood Gas Hemoglobin 16.3 G/DL (12.0-16.0) Potassium Level 3.3 MEQ/L (3.5-5.1) Phosphorus Level 2.2 MG/DL (2.5-4.9) PE at Discharge GENERAL: This is a well-nourished, well-developed patient, in no apparent distress. CARDIOVASCULAR: Regular rate and irregular rhythm without murmurs, gallops, or rubs. RESPIRATORY: Clear to auscultation. Breath sounds equal bilaterally. No wheezes , rales, or rhonchi. GASTROINTESTINAL: Abdomen soft, non-tender, nondistended. Normal, active bowel sounds MUSCULOSKELETAL: Extremities without clubbing, cyanosis, or edema. NEURO: Alert & Oriented x4 to person, place, time, situation. Moves all ext x4 Hospital Course - DKA/ newly diagnosed diabetes mellitus off the insulin drip since last night- started on levemir and sliding scale coverage. A1c to be followed up- consulted clinical unit educator and ham pumper. -hyponatremia due to hyperglycemia- resolved. -acute kidney injury due to dehydration/ DKA; resolved. -DVT prophylaxis with subq Lovenox Pt Condition on Discharge: Good Discharge Disposition: Discharge Home Discharge Time: > 30 minutes Discharge Instructions DIET: Follow Instructions for: Diabetic Diet Activities you can perform: Regular-No Restrictions Follow up Referrals: Endocrinology PCP Follow-up New Medications: Insulin Aspart Inj (Novolog Inj) 1,000 Unit/10 Ml Vial 1-9 UNITS SQ ACHS sugars less than 70,(0)units; sugars 150-199,(2) unit; sugars 200-249,(4) units; sugars 250-299,(6) units; sugars 300-349,(8) units; sugars greater than 349,(10) units inform PCP if blood sugar < 70 or >400. Blood Sugar Management Days 30 Ref 0 ML Insulin Detemir Inj (Levemir Inj) 1,000 unit/ 10 ML Vial 15 UNITS SQ DAILY diabetes Days 30 Ref 0 INJECTION Delores Virk MD Jun 05, 2017 08:47
[2017-06-05] MEDS: ENOXAPARIN SODIUM 40 MG/0.4 ML SYRINGE SQ SCH (12:31)
[2017-06-05 18:30] LABS: HEMOGLOBIN A1a 1.6 %; HEMOGLOBIN Ao 65.2 %; HEMOGLOBIN F 4.6 %; HEMOGLOBIN LA1C 5.8 %; HEMOGLOBIN P3 7.8 %
[2017-06-05] MEDS ORDERED: HYDROmorphone HCL PF 2 MG/ML VIAL IV PRN (20:30)
[2017-06-05] MEDS ORDERED: HYDROmorphone HCL PF 1 MG/ML VIAL IV PRN (20:30)
[2017-06-06] MEDS: SODIUM CHLOR 0.9% 1000 ML INJ 1,000 ML IV SCH ×2 (02:45→10:45)
[2017-06-06] MEDS: CHLORHEXIDINE GLUCONATE 2 % 1 PACK (2 CLOTHS)(taper/protocol) TOPICAL SCH (03:45)
[2017-06-06 06:06] VITALS: BP 113/67; PULSE 61; RESP 17; TEMP 97.1; O2SAT 98
[2017-06-06] MEDS: INSULIN NovoLIN REGULAR SUPPLEMENTAL SCALE SQ SCH (06:09)
[2017-06-06 08:00] VITALS: BP 128/84; PULSE 85; RESP 18; TEMP 97.4; O2SAT 100
[2017-06-06] MEDS ORDERED: LEVEMIR SQ (08:09)
--- NOTE | 2017-06-06 08:09 | HHI.PR ---
Subjective Remarks resting comfortably with no distress. denies pain. no new complaints. Objective Vitals Vital Signs Date Time Temp Pulse Resp B/P Pulse Ox O2 Delivery O2 Flow Rate FiO2 06/06/17 06:06 97.1 61 17 113/67 98 06/05/17 22:00 97.7 92 18 121/82 98 06/05/17 20:00 98.2 77 23 127/82 99 06/05/17 18:00 87 25 06/05/17 16:00 74 21 06/05/17 14:10 90 31 117/83 06/05/17 14:00 86 29 06/05/17 12:00 69 21 128/78 100 06/05/17 12:00 69 21 128/78 100 06/05/17 11:00 74 23 143/88 100 06/05/17 11:00 74 23 143/88 100 06/05/17 10:00 72 24 140/83 100 06/05/17 10:00 72 24 140/83 100 I/O 06/05/17 06/05/17 06/05/17 06/06/17 06/06/17 06/06/17 07:00 15:00 23:00 07:00 15:00 23:00 Intake Total 793 ml 963 ml 138 ml Output Total 400 ml 900 ml 725 ml Balance 393 ml 63 ml -587 ml Intake Oral 240 ml 750 ml IV Total 553 ml 213 ml 138 ml Output Urine Total 400 ml 900 ml 725 ml # Bowel Movements 0 Result Diagram: 06/04/17 0835 06/04/17 1631 Objective Remarks GENERAL: This is a well-nourished, well-developed patient, in no apparent distress. CARDIOVASCULAR: Regular rate and irregular rhythm without murmurs, gallops, or rubs. RESPIRATORY: Clear to auscultation. Breath sounds equal bilaterally. No wheezes , rales, or rhonchi. GASTROINTESTINAL: Abdomen soft, non-tender, nondistended. Normal, active bowel sounds MUSCULOSKELETAL: Extremities without clubbing, cyanosis, or edema. NEURO: Alert & Oriented x4 to person, place, time, situation. Moves all ext x4 Procedures none Medications and IVs Current Medications Ondansetron HCl 4 mg 4 mg ONCE ONCE IVP Last administered on 06/04/17t 08:45; Start 06/04/17 at 08:30; Stop 06/04/17 at 08:31; Status DC Sodium Chloride (NS 1000 ml Inj) 1,000 ml @ 1,000 mls/hr Q1H IV Last administered on 06/04/17 08:46; Start 06/04/17 at 08:29; Stop 06/04/17 at 09:28 ; Status DC Sodium Chloride 2 ml 2 ml UNSCH PRN IV FLUSH FLUSH AFTER USING IV ACCESS Last administered on 06/04/17 08:46; Start 06/04/17 at 08:30 Sodium Chloride 1,000 ml @ 250 mls/hr Q4H IV Last administered on 06/04/17 11 :45; Start 06/04/17 at 09:42; Stop 06/04/17 at 18:50; Status DC Dextrose/Sodium Chloride (D5W-NS 1000 ml Inj) 1,000 ml @ 200 mls/hr Q5H IV Last administered on 06/04/17 14:30; Start 06/04/17 at 09:42; Stop 06/04/17 at 18:50; Status DC Insulin Human Regular 6 units 6 units BOLUS ONCE IV PUSH Last administered on 06/04/17 10:59; Start 06/04/17 at 09:45; Stop 06/04/17 at 18:50; Status DC Insulin Human Regular 100 units/ Sodium Chloride 100 ml @ 0 mls/hr TITRATE IV Last administered on 06/04/17 11:12; Start 06/04/17 at 09:45; Stop 06/04/17 at 18:50; Status DC Potassium Chloride 100 ml @ 100 mls/hr Q1H PRN IV SEE LABEL COMMENTS; Start at 09:45; Stop 06/04/17 at 18:50; Status DC Potassium Chloride 100 ml @ 50 mls/hr Q2H PRN IV SEE LABEL COMMENTS; Start 09/11 at 09:45; Stop 06/04/17 at 18:50; Status DC Potassium Chloride 100 ml @ 100 mls/hr Q1H PRN IV SEE LABEL COMMENTS; Start at 09:45; Stop 06/04/17 at 18:50; Status DC Potassium Chloride 100 ml @ 100 mls/hr Q1H PRN IV SEE LABEL COMMENTS; Start at 09:45; Stop 06/04/17 at 18:50; Status DC Potassium Chloride 100 ml @ 50 mls/hr Q2H PRN IV SEE LABEL COMMENTS; Start 09/11 at 09:45; Stop 06/04/17 at 18:50; Status DC Potassium Chloride 100 ml @ 50 mls/hr Q2H PRN IV SEE LABEL COMMENTS Last administered on 06/04/17 17:28; Start 06/04/17 at 09:45; Stop 06/04/17 at 18:50 ; Status DC Potassium Chloride 100 ml @ 50 mls/hr Q2H PRN IV SEE LABEL COMMENTS; Start 09/11 at 09:45; Stop 06/04/17 at 18:50; Status DC Potassium Chloride (KCl 20 Meq Premix Inj) 100 ml @ 50 mls/hr Q2H PRN IV SEE LABEL COMMENTS; Start 06/04/17 at 09:45; Stop 06/04/17 at 18:50; Status DC Sodium Bicarbonate (Sodium Bicarbonate 8.4% Inj) 100 meq UNSCH PRN IV SEE LABEL COMMENTS; Start 06/04/17 at 09:45; Stop 06/04/17 at 18:50; Status DC Sodium Bicarbonate 50 meq 50 meq UNSCH PRN IV SEE LABEL COMMENTS; Start at 09:45; Stop 06/04/17 at 18:50; Status DC Sodium Phosphate/ Sodium Chloride (Sodium Phosphate Inj/NS Inj) 105 ml @ 25 mls /hr UNSCH PRN IV SEE LABEL COMMENTS; Start 06/04/17 at 09:45; Stop 06/04/17 at 18:50; Status DC Ondansetron HCl (Zofran Inj) 4 mg Q8H PRN IV PUSH NAUSEA; Start 06/04/17 at 10: 15 Enoxaparin Sodium (Lovenox Inj) 40 mg Q24H SQ Last administered on 06/05/17 12 :31; Start 06/04/17 at 12:00 Insulin Detemir 15 units 15 units DAILY SQ Last administered on 06/05/17 07:52 ; Start 06/04/17 at 18:45 Sodium Chloride (NS 1000 ml Inj) 1,000 ml @ 125 mls/hr Q8H IV Last administered on 06/05/17 18:45; Start 06/04/17 at 18:45 Dextrose (D50w (Vial) Inj) 50 ml UNSCH PRN IV HYPOGLYCEMIA-SEE COMMENTS; Start 06/04/17 at 18:45 Glucagon (Glucagon Inj) 1 mg UNSCH PRN OTHER HYPOGLYCEMIA-SEE COMMENTS; Start 06/04/17 at 18:45 Insulin Human Regular 1 1 ACHS SLIDING SCALE SQ Last administered on 06:09; Start 06/04/17 at 21:00 Potassium Chloride (KCl 20 Meq Premix Inj) 100 ml @ As Directed STK-MED ONCE .ROUTE ; Start 06/04/17 at 19:56; Stop 06/04/17 at 19:57; Status DC Miscellaneous Information Patient in critical care unit? Ass... Q361D .XX ; Start 06/04/17 at 23:00 Chlorhexidine Gluconate (Chlorhexidine 2% Cloth) 3 pack DAILY@04 TOPICAL Last administered on 06/06/17 03:45; Start 06/05/17 at 04:00; Stop 06/09/17 at 04:01 Chlorhexidine Gluconate (Chlorhexidine 2% Cloth) 3 pack UNSCH PRN TOPICAL HYGIENIC CARE; Start 06/04/17 at 23:00; Stop 06/09/17 at 22:57 Hydromorphone HCl (Dilaudid Pf Inj) 1 mg Q4H PRN IV MILD PAIN; Start 06/05/17 at 20:30; Status Cancel Hydromorphone HCl (Dilaudid Pf Inj) 2 mg Q4H PRN IV SEVERE PAIN; Start at 20:30; Status Cancel A/P Assessment and Plan A/P - DKA/ newly diagnosed diabetes mellitus; DKA has resolved. started on levemir and sliding scale coverage. A1c 15.2. consulted chemical educator and international broadcast music librarian. -hyponatremia due to hyperglycemia- resolved. -acute kidney injury due to dehydration/ DKA; resolved. -DVT prophylaxis with subq Lovenox Discharge Planning dc home today after seen by international broadcast music librarian. see med list. f/u; pcp and endocrinology. d/w the patient. time spent 35 min. Delores Virk MD Jun 06, 2017 08:08
--- NOTE | 2017-06-06 08:10 | HHI.DS ---
Discharge Summary Admission Date Jun 04, 2017 at 10:16 Discharge Date: Jun 06, 2017 Admitting Diagnosis DKA/new onset diabetes (1) DKA (diabetic ketoacidoses) ICD Code: E13.10 Diagnosis: Principal (2) Diabetes mellitus, new onset ICD Code: E11.9 Diagnosis: Principal Procedures none Brief History - From Admission patient is a 27 y/o male with no significant past medical history who presented to ER with generalized weakness. he says that over the past two weeks he's been feeling thirsty all the time and had urinary frequency. he's lost about ten pounds over the past two-three weeks.he says that he's been feeling so weak that he couldn't stand up in the shower today. he had some blurred vision earlier.he had mild abdominal pain and nausea. he denies any history of diabetes. CBC/BMP: 06/04/17 0835 06/04/17 1631 Significant Findings Laboratory Tests Test 06/04/17 06/04/17 06/04/17 06/05/17 08:35 09:59 16:31 04:12 Red Blood Count 6.09 MIL/MM3 (4.50-5.90) Hemoglobin 17.2 GM/DL (13.0-17.0) Hematocrit 54.0 % (39.0-51.0) Mean Corpuscular Hemoglobin 31.9 % Concent (32.0-36.0) Urine Glucose (UA) 1000 mg/dL (NEG) Urine Ketones 40 mg/dL (NEG) Sodium Level 129 MEQ/L (136-145) Chloride Level 90 MEQ/L 111 MEQ/L (98-107) (98-107) Creatinine 1.46 MG/DL (0.60-1.30) Estimat Glomerular Filtration 70 ML/MIN (>89) Rate Random Glucose 839 MG/DL 177 MG/DL (74-106) (74-106) Alkaline Phosphatase 184 U/L (45-117) Total Protein 9.2 GM/DL (6.4-8.2) B-Hydroxybutyrate 4.41 MMOL/L 2.69 MMOL/L (0.00-0.39) (0.00-0.39) Hemoglobin A1c 15.2 % (4.3-6.0) Blood Gas HCO3 19 mmol/L (22-26) Blood Gas Base Excess -5.7 mmol/L (-2-2) Arterial Blood pH 7.36 (7.380-7.420) Arterial Blood Partial 34 mmHg (38-42) Pressure CO2 Arterial Blood Oxygen Content 21.8 Vol % (12.0-20.0) Blood Gas Hemoglobin 16.3 G/DL (12.0-16.0) Potassium Level 3.3 MEQ/L (3.5-5.1) Phosphorus Level 2.2 MG/DL (2.5-4.9) PE at Discharge GENERAL: This is a well-nourished, well-developed patient, in no apparent distress. CARDIOVASCULAR: Regular rate and irregular rhythm without murmurs, gallops, or rubs. RESPIRATORY: Clear to auscultation. Breath sounds equal bilaterally. No wheezes , rales, or rhonchi. GASTROINTESTINAL: Abdomen soft, non-tender, nondistended. Normal, active bowel sounds MUSCULOSKELETAL: Extremities without clubbing, cyanosis, or edema. NEURO: Alert & Oriented x4 to person, place, time, situation. Moves all ext x4 Hospital Course - DKA/ newly diagnosed diabetes mellitus; DKA has resolved. started on levemir and sliding scale coverage. A1c 15.2. consulted asthma educator and seed analysis laboratory assistant. -hyponatremia due to hyperglycemia- resolved. -acute kidney injury due to dehydration/ DKA; resolved. -DVT prophylaxis with subq Lovenox Pt Condition on Discharge: Good Discharge Disposition: Discharge Home Discharge Time: > 30 minutes Discharge Instructions DIET: Follow Instructions for: Diabetic Diet Activities you can perform: Regular-No Restrictions Follow up Referrals: Endocrinology PCP Follow-up New Medications: Insulin Aspart Inj (Novolog Inj) 1,000 Unit/10 Ml Vial 1-9 UNITS SQ ACHS sugars less than 70,(0)units; sugars 150-199,(2) unit; sugars 200-249,(4) units; sugars 250-299,(6) units; sugars 300-349,(8) units; sugars greater than 349,(10) units inform PCP if blood sugar < 70 or >400. Blood Sugar Management Days 30 Ref 0 ML Insulin Glargine Inj (Lantus Inj) 1,000 Unit/10 Ml Vial 20 UNITS SQ DAILY Blood Sugar Management Days 30 Ref 0 VIAL Delores Virk MD Jun 06, 2017 08:09
[2017-06-06] MEDS ORDERED: INSULIN DETEMIR 100 UNITS/ML VIAL SQ SCH (09:00)
[2017-06-06] MEDS ORDERED: MAGNESIUM CITRATE SOLN 300 ML BTL PO ONE (11:00)
[2017-06-06] MEDS: ENOXAPARIN SODIUM 40 MG/0.4 ML SYRINGE SQ SCH (11:24)
[2017-06-06 12:00] VITALS: BP 144/89; PULSE 90; RESP 18; TEMP 97.6; O2SAT 99
[2017-06-06] MEDS ORDERED: LANTUS2P SQ (13:08)
== END 2017-06-06 15:26 | disposition home or self-care (01) | DRG 638 ==
LOC: NEPC 08:14 → NEDA 10:16 → HIMN 11:45 → HOCB 06-05 21:58
PROVIDERS: ADMIT Internal Medicine; ATTEND Internal Medicine
DX: E13.10 Other specified diabetes mellitus with ketoacidosis without coma (principal); E87.1 Hypo-osmolality and hyponatremia; N17.9 Acute kidney failure, unspecified; F17.210 Nicotine dependence, cigarettes, uncomplicated; E86.0 Dehydration; Z83.3 Family history of diabetes mellitus
CPT/HCPCS: 36600; 80048; 80053; 81001; 82010; 82805; 82948; 83036; 83690; 83735; 84100; 85025; 87641; 93005; 96374; J1650; J1815; J1817; J2405; J3480; J7030; J7042

== ENCOUNTER 2017-09-26 11:24 | Emergency (ER) | payer SELFPAY ==
[~2017-09-26] VITALS: Ht 182.9 cm; Wt 100.0 kg
[~2017-09-26 11:24] MED LIST changes: +LANTUS2P SQ; +NOVOLOGP2 SQ; -Z.0.NO CURRENT MEDS
[2017-09-26 11:25] VITALS: BP 131/72; PULSE 70; RESP 16; TEMP 98.4; O2SAT 97
--- NOTE | 2017-09-26 12:10 | PD ---
HPI Chief Complaint: Abdominal Pain Time Seen by Provider: 11:55 Travel History International Travel<30 days: No Contact w/Intl Traveler<30days: No Traveled to known affect area: No History of Present Illness HPI 27-year-old male presents to emergency Department with complaint of lower quadrant abdominal pain and bloating times one week. One week ago had severe abdominal pain with vomiting for one day and then pain decreased, but bloating persisted. Reports increased abdominal pain 2 days. Reports loose bowel movement this morning. Denies fever, vomiting, dysuria. Denies penile discharge, testicular pain or swelling. Has been taking Pepto-Bismol and stool softeners for symptom management. Rates pain 7-/10. No known aggravating or relieving factors. Described as "rocks in his stomach." Denies history of abdominal surgery. Reports history of diabetes that he was recently diagnosed with and has not used insulin in the past 1-1/2-2 months secondary to blood sugars being in the 120s. Last checked his blood sugar 2 days ago and it was 129. Does not have an established primary care provider. Allergies to sulfa. Has no other medical complaints. No other Modifying factors or associated signs and symptoms. PFSH Past Medical History Cancer: No Cardiovascular Problems: No Diabetes: Yes Patient Takes Glucophage: No Endocrine: No Genitourinary: No Immune Disorder: No Musculoskeletal: No Neurologic: No Psychiatric: No Reproductive: No Respiratory: No Tetanus Vaccination: < 5 Years Past Surgical History Surgical History: No Previous Surgery AICD: No Arteriovenous Shunt: No Insulin Pump: No Joint Replacement: No Pacemaker: No Other Surgery: No Social History Alcohol Use: No Tobacco Use: No Substance Use: No Allergies-Medications (Allergen,Severity, Reaction): Coded Allergies: Sulfa (Sulfonamide Antibiotics) (Unverified Allergy, Intermediate, JUNITO , 09/26/17) Reported Meds & Prescriptions Reported Meds & Active Scripts Active Zantac (Ranitidine HCl) 150 Mg Tab 150 Mg PO DAILY Review of Systems Except as stated in HPI: all other systems reviewed are Neg Physical Exam Narrative GENERAL: Well-nourished, well-developed male patient, in no acute distress; afebrile SKIN: Warm and dry. HEAD: Atraumatic. Normocephalic. EYES: Pupils equal and round. No scleral icterus. No injection or drainage. ENT: Mucosa pink and moist. Airway patent. NECK: Trachea midline. CARDIOVASCULAR: Regular rate and rhythm. No murmur appreciated. RESPIRATORY: No accessory muscle use. Clear to auscultation. Breath sounds equal bilaterally. GASTROINTESTINAL: Abdomen soft, tenderness on palpation to bilateral lower abdomen, nondistended. Hepatic and splenic margins not palpable. Bowel sounds are active 4 quadrants. Nonrigid. No rebound tenderness. No guarding. BACK: No CVA tenderness. MUSCULOSKELETAL: No obvious deformities. No clubbing. No cyanosis. No edema. NEUROLOGICAL: Awake and alert. Oriented 3. No obvious cranial nerve deficits. Motor grossly within normal limits. Normal speech. PSYCHIATRIC: Appropriate mood and affect; insight and judgment normal. Data Data Last Documented VS Vital Signs Date Time Temp Pulse Resp B/P (MAP) Pulse Ox O2 Delivery O2 Flow Rate FiO2 09/26/17 15:13 80 20 129/71 (90) 100 09/26/17 11:25 98.4 Room Air Orders Orders Complete Blood Count With Diff (09/26/17 11:43) Comprehensive Metabolic Panel (09/26/17 11:43) Lipase (09/26/17 11:43) Prothrombin Time / Inr (Pt) (09/26/17 11:43) Act Partial Throm Time (Ptt) (09/26/17 11:43) Urinalysis - C+S If Indicated (09/26/17 11:43) Ct Abd/Pel W Iv Contrast(Rout) (09/26/17 12:14) Iv Access Insert/Monitor (09/26/17 12:14) Sodium Chlor 0.9% 1000 Ml Inj (Ns 1000 M (09/26/17 12:14) Sodium Chloride 0.9% Flush (Ns Flush) (09/26/17 12:15) Iohexol 350 Inj (Omnipaque 350 Inj) (09/26/17 13:52) Ed Discharge Order (09/26/17 14:56) Labs Laboratory Tests Test 09/26/17 12:00 09/26/17 14:10 White Blood Count 9.4 TH/MM3 Red Blood Count 5.04 MIL/MM3 Hemoglobin 15.1 GM/DL Hematocrit 45.1 % Mean Corpuscular Volume 89.5 FL Mean Corpuscular Hemoglobin 29.9 PG Mean Corpuscular Hemoglobin Concent 33.4 % Red Cell Distribution Width 13.8 % Platelet Count 303 TH/MM3 Mean Platelet Volume 8.2 FL Neutrophils (%) (Auto) 65.7 % Lymphocytes (%) (Auto) 26.3 % Monocytes (%) (Auto) 7.6 % Eosinophils (%) (Auto) 0.2 % Basophils (%) (Auto) 0.2 % Neutrophils # (Auto) 6.2 TH/MM3 Lymphocytes # (Auto) 2.5 TH/MM3 Monocytes # (Auto) 0.7 TH/MM3 Eosinophils # (Auto) 0.0 TH/MM3 Basophils # (Auto) 0.0 TH/MM3 CBC Comment DIFF FINAL Differential Comment Prothrombin Time 10.7 SEC Prothromb Time International Ratio 1.0 RATIO Activated Partial Thromboplast Time 31.0 SEC Blood Urea Nitrogen 11 MG/DL Creatinine 0.70 MG/DL Random Glucose 106 MG/DL Total Protein 7.1 GM/DL Albumin 3.3 GM/DL Calcium Level 8.6 MG/DL Alkaline Phosphatase 100 U/L Aspartate Amino Transf (AST/SGOT) 16 U/L Alanine Aminotransferase (ALT/SGPT) 27 U/L Total Bilirubin 0.2 MG/DL Sodium Level 138 MEQ/L Potassium Level 4.0 MEQ/L Chloride Level 107 MEQ/L Carbon Dioxide Level 23.4 MEQ/L Anion Gap 8 MEQ/L Estimat Glomerular Filtration Rate 164 ML/MIN Lipase 76 U/L Urine Color LIGHT-YELLOW Urine Turbidity CLEAR Urine pH 6.0 Urine Specific [place] 1.050 Urine Protein NEG mg/dL Urine Glucose (UA) NEG mg/dL Urine Ketones 10 mg/dL Urine Occult Blood NEG Urine Nitrite NEG Urine Bilirubin NEG Urine Urobilinogen LESS THAN 2.0 MG/DL Urine Leukocyte Esterase NEG Urine RBC LESS THAN 1 /hpf Microscopic Urinalysis Comment CULT NOT INDICATED MDM Medical Decision Making Medical Screen Exam Complete: Yes Emergency Medical Condition: Yes Medical Record Reviewed: Yes Differential Diagnosis Nonspecific abdominal pain, appendicitis, gastroenteritis Narrative Course IV site established. Labs, CT, normal saline bolus ordered. I offered the patient pain medication and he declined. 1253: CBC and coags unremarkable. 1418: CMP unremarkable. CT abdomen/pelvis concludes: Enlarged fatty liver; Very minimal ascites within the pelvis. UA pending. 1454: Urinalysis without signs of infection. Laboratory results and CT findings discussed with patient. Dr. Johnston evaluated the patient and agrees the patient is stable for discharge and recommended to prescribe Zantac for home. Zantac prescribed for home. Instructed patient to follow up with gastroenterology. Instructed patient to follow up with primary care provider. Patient verbalizes understanding and agreement with treatment plan. Patient is medically cleared and stable for discharge. Discussed reasons to return to the emergency department. Patient agrees with treatment plan. The patients vital signs are stable and the patient is stable for outpatient follow-up and treatment. Patient discharged home, stable and in no acute distress. Diagnosis Primary Impression: Abdominal pain Qualified Codes: R10.30 - Lower abdominal pain, unspecified Referrals: [facility] [employer] [facility] Primary Care Physician Patient Instructions: Abdominal Pain (ED), General Instructions Additional Instructions: Follow-up with gastroenterology Follow-up with primary care provider Return to the emergency department immediately with worsening of symptoms Med/Other Pt SpecificInfo: Prescription(s) given Scripts Ranitidine (Zantac) 150 Mg Tab 150 MG PO DAILY for Reduce Stomach Acid, #30 TAB 0 Refills Prov: Carolina Resendez 09/26/17 Disposition: 01 DISCHARGE HOME Condition: Stable Carolina Resendez Sep 26, 2017 12:09
[2017-09-26] MEDS ORDERED: SODIUM CHLOR 0.9% 1000 ML INJ 1,000 ML IV SCH (12:14)
[2017-09-26] MEDS ORDERED: SODIUM CHLORIDE 0.9% FLUSH 10 ML FLUSH IV FLUSH PRN (12:15)
[2017-09-26 12:44] LABS: AUTOMATED NEUTROPHIL # 6.2 TH/MM3 (1.8-7.7); BASOPHIL % 0.2 % (0.0-2.0); EOSINOPHIL % 0.2 % (0.0-4.0); HEMATOCRIT 45.1 % (39.0-51.0); HEMO FLAGS DIFF FINAL; LYMPH % 26.3 % (9.0-44.0); LYMPHOCYTE # 2.5 TH/MM3 (1.0-4.8); MEAN CELL VOLUME 89.5 FL (80.0-100.0); MEAN CORPUSCULAR HEMOGLOBIN 29.9 PG (27.0-34.0); MEAN CORPUSCULAR HGB CONC 33.4 % (32.0-36.0); MONO % 7.6 % (0.0-8.0); NEUT % 65.7 % (16.0-70.0); PLATELET COUNT 303 TH/MM3 (150-450); RED BLOOD COUNT 5.04 MIL/MM3 (4.50-5.90); RED CELL DISTRIBUTION WIDTH 13.8 % (11.6-17.2); WHITE BLOOD COUNT 9.4 TH/MM3 (4.0-11.0)
[2017-09-26 12:53] LABS: PROTHROMBIN TIME - PATIENT 10.7 SEC (9.8-11.6)
[2017-09-26 13:04] LABS: ALKALINE PHOSPHATASE 100 U/L (45-117); TOTAL BILIRUBIN ADULT 0.2 MG/DL (0.2-1.0)
[2017-09-26 13:07] LABS: ALT (GPT) 27 U/L (12-78); ANION GAP 8 MEQ/L (5-15); AST (GOT) 16 U/L (15-37); BICARBONATE 23.4 MEQ/L (21.0-32.0); BLOOD UREA NITROGEN 11 MG/DL (7-18); CHLORIDE 107 MEQ/L (98-107); GLOMERULAR FILTRATION RATE 164 ML/MIN (>89); SODIUM (NA) 138 MEQ/L (136-145)
[2017-09-26] MEDS ORDERED: IOHEXOL 350 MG/ML 10 ML VIAL (for RAD DIAG) IVCONTRAST ONE (13:52)
--- NOTE | 2017-09-26 14:13 | RADRPT ---
EXAM DATE/TIME: 09/26/2017 13:30 [place] COMPARISON: No previous studies available for comparison. INDICATIONS : Abdomen pain for 1 week IV CONTRAST: 88 cc Omnipaque 350 (iohexol) IV ORAL CONTRAST: No oral contrast ingested. RADIATION DOSE: 12.62 CTDIvol (mGy) MEDICAL HISTORY : Diabetes mellitus type 2. SURGICAL HISTORY : None. ENCOUNTER: Initial ACUITY: 1 week PAIN SCALE: 10/10 LOCATION: diffuse abdomen TECHNIQUE: Volumetric scanning of the abdomen and pelvis was performed. Using automated exposure control and ad justment of the mA and/or kV according to patient size, radiation dose was kept as low as reasonably achievable to obtain optimal diagnostic quality images. DICOM format image data is available electro nically for review and comparison. FINDINGS: LOWER LUNGS: The visualized lower lungs are clear. LIVER: The liver is enlarged and demonstrates fatty infiltration. No focal hepatic mass is noted. There is n o dilation of the biliary tree. No calcified gallstones. SPLEEN: Normal size without lesion. PANCREAS: Within normal limits. KIDNEYS: Normal in size and shape. There is no mass, stone or hydronephrosis. ADRENAL GLANDS: Within normal limits. VASCULAR: There is no aortic aneurysm. BOWEL/MESENTERY: The stomach, small bowel, and colon demonstrate no acute abnormality. There is no free intraperitone al air. Very minimal ascites is noted within the pelvis. The appendix is normal. ABDOMINAL WALL: Within normal limits. RETROPERITONEUM: There is no lymphadenopathy. BLADDER: No wall thickening or mass. REPRODUCTIVE: Within normal limits. INGUINAL: There is no lymphadenopathy or hernia. MUSCULOSKELETAL: Within normal limits for patient age. CONCLUSION: 1. Enlarged fatty liver. 2. Very minimal ascites within the pelvis. Og Tracy MD on September 26, 2017 at 14:08 Board Certified Radiologist. This report was verified electronically.
[2017-09-26 14:44] LABS: BLOOD, URINE NEG (NEG); GLUCOSE,URINE NEG (NEG); KETONE, URINE 10 mg/dL (NEG); NITRITE,URINE NEG (NEG); URINE COLOR LIGHT-YELLOW (YELLW/STRAW)
[2017-09-26 14:48] LABS: COMMENT (UR) CULT NOT INDICATED; CULTURE IF INDICATED CULT NOT INDICATED
[2017-09-26] MEDS ORDERED: ZANT150T2 PO (15:03)
[2017-09-26 15:13] VITALS: BP 129/71
--- NOTE | 2017-09-27 10:24 | PD ---
Data Data Last Documented VS Vital Signs Date Time Temp Pulse Resp B/P (MAP) Pulse Ox O2 Delivery O2 Flow Rate FiO2 09/26/17 15:13 80 20 129/71 (90) 100 09/26/17 11:25 98.4 Room Air Orders Orders Complete Blood Count With Diff (09/26/17 11:43) Comprehensive Metabolic Panel (09/26/17 11:43) Lipase (09/26/17 11:43) Prothrombin Time / Inr (Pt) (09/26/17 11:43) Act Partial Throm Time (Ptt) (09/26/17 11:43) Urinalysis - C+S If Indicated (09/26/17 11:43) Ct Abd/Pel W Iv Contrast(Rout) (09/26/17 12:14) Iv Access Insert/Monitor (09/26/17 12:14) Sodium Chlor 0.9% 1000 Ml Inj (Ns 1000 M (09/26/17 12:14) Sodium Chloride 0.9% Flush (Ns Flush) (09/26/17 12:15) Iohexol 350 Inj (Omnipaque 350 Inj) (09/26/17 13:52) Ed Discharge Order (09/26/17 14:56) Labs Laboratory Tests Test 09/26/17 12:00 09/26/17 14:10 White Blood Count 9.4 TH/MM3 Red Blood Count 5.04 MIL/MM3 Hemoglobin 15.1 GM/DL Hematocrit 45.1 % Mean Corpuscular Volume 89.5 FL Mean Corpuscular Hemoglobin 29.9 PG Mean Corpuscular Hemoglobin Concent 33.4 % Red Cell Distribution Width 13.8 % Platelet Count 303 TH/MM3 Mean Platelet Volume 8.2 FL Neutrophils (%) (Auto) 65.7 % Lymphocytes (%) (Auto) 26.3 % Monocytes (%) (Auto) 7.6 % Eosinophils (%) (Auto) 0.2 % Basophils (%) (Auto) 0.2 % Neutrophils # (Auto) 6.2 TH/MM3 Lymphocytes # (Auto) 2.5 TH/MM3 Monocytes # (Auto) 0.7 TH/MM3 Eosinophils # (Auto) 0.0 TH/MM3 Basophils # (Auto) 0.0 TH/MM3 CBC Comment DIFF FINAL Differential Comment Prothrombin Time 10.7 SEC Prothromb Time International Ratio 1.0 RATIO Activated Partial Thromboplast Time 31.0 SEC Blood Urea Nitrogen 11 MG/DL Creatinine 0.70 MG/DL Random Glucose 106 MG/DL Total Protein 7.1 GM/DL Albumin 3.3 GM/DL Calcium Level 8.6 MG/DL Alkaline Phosphatase 100 U/L Aspartate Amino Transf (AST/SGOT) 16 U/L Alanine Aminotransferase (ALT/SGPT) 27 U/L Total Bilirubin 0.2 MG/DL Sodium Level 138 MEQ/L Potassium Level 4.0 MEQ/L Chloride Level 107 MEQ/L Carbon Dioxide Level 23.4 MEQ/L Anion Gap 8 MEQ/L Estimat Glomerular Filtration Rate 164 ML/MIN Lipase 76 U/L Urine Color LIGHT-YELLOW Urine Turbidity CLEAR Urine pH 6.0 Urine Specific [place] 1.050 Urine Protein NEG mg/dL Urine Glucose (UA) NEG mg/dL Urine Ketones 10 mg/dL Urine Occult Blood NEG Urine Nitrite NEG Urine Bilirubin NEG Urine Urobilinogen LESS THAN 2.0 MG/DL Urine Leukocyte Esterase NEG Urine RBC LESS THAN 1 /hpf Microscopic Urinalysis Comment CULT NOT INDICATED MDM Supervised Visit with JONAH: Yes Narrative Course The history, exam, and medical decision-making in the associated midlevel provider note were completed with my assistance. I reviewed and agree with the findings presented. I attest that I had a [id number] encounter with the patient on the same day, and personally performed and documented my assessment and findings in the medical record. *My assessment and Findings: This is a 27-year-old male who presents to the emergency department with abdominal discomfort. He is very well-appearing on exam and his pain is mostly in the lower abdomen. Labs and CT imaging are reassuring. I think he can be discharged home with a referral to gastroenterology. Diagnosis Primary Impression: Abdominal pain Referrals: [facility] Primary Care Physician Patient Instructions: General Instructions, Abdominal Pain (ED) Departure Forms: Tests/Procedures Additional Instruction: Follow-up with gastroenterology Follow-up with primary care provider Return to the emergency department immediately with worsening of symptoms Scripts Ranitidine (Zantac) 150 Mg Tab 150 MG PO DAILY for Reduce Stomach Acid, #30 TAB 0 Refills Prov: Carolina Resendez STATISTICAL TECHNICIAN 09/26/17 Disposition: 01 DISCHARGE HOME Condition: Stable Nicole Johnston MD Sep 27, 2017 10:24
== END 2017-09-26 15:20 | disposition home or self-care (01) ==
LOC: NEPD 11:24
DX: R10.30 Lower abdominal pain, unspecified (principal); K76.0 Fatty (change of) liver, not elsewhere classified; R18.8 Other ascites; Z79.899 Other long term (current) drug therapy; Z88.2 Allergy status to sulfonamides
CPT/HCPCS: 74177; 80053; 81001; 83690; 85025; 85610; 85730; 96360; 96361; 99285; J7030; Q9967

== ENCOUNTER 2018-03-29 11:22 | Emergency (ER) | payer SELFPAY ==
[~2018-03-29] VITALS: Ht 182.9 cm; Wt 100.0 kg
[~2018-03-29 11:22] MED LIST changes: -LANTUS2P SQ; -NOVOLOGP2 SQ; +ZANT150T2 PO
[2018-03-29 11:25] VITALS: BP 129/81; PULSE 84; RESP 18; TEMP 97.8; O2SAT 97
[2018-03-29] MEDS ORDERED: ALUMINUM/MAGNESIUM/SIMETH 30 ML CUP PO ONE (11:45)
[2018-03-29] MEDS ORDERED: PANTOPRAZOLE SODIUM 40 MG VIAL IVP ONE (11:45)
[2018-03-29] MEDS ORDERED: LIDOCAINE VISCOUS 2% SOLN 15 ML UDC PO ONE (11:45)
--- NOTE | 2018-03-29 12:03 | PD ---
HPI Chief Complaint: Abdominal Pain Time Seen by Provider: 11:29 Travel History International Travel<30 days: No Contact w/Intl Traveler<30days: No Traveled to known affect area: No History of Present Illness HPI This is a 28-year-old male with history of diabetes presents for evaluation of abdominal pain. Symptoms started 2 days ago. The pain is in the epigastrium and comes and goes, currently it is quite mild but yesterday was more consistent. Pain is a sharp pain that seems to be worse a few hours after eating. He denies any nausea, vomiting, diarrhea, constipation, fevers, chills , flank pain, dysuria. He reports that he has this pain occasionally the past, approximately once every 3 months. No other complaints. PFSH Past Medical History Cancer: No Cardiovascular Problems: No Diabetes: Yes Endocrine: No Genitourinary: No Immune Disorder: No Musculoskeletal: No Neurologic: No Psychiatric: No Reproductive: No Respiratory: No Past Surgical History AICD: No Arteriovenous Shunt: No Insulin Pump: No Joint Replacement: No Pacemaker: No Other Surgery: No Social History Alcohol Use: No Tobacco Use: No Substance Use: No Allergies-Medications (Allergen,Severity, Reaction): Coded Allergies: Sulfa (Sulfonamide Antibiotics) (Unverified Allergy, Intermediate, JUNITO , 09/26/17) Reported Meds & Prescriptions Reported Meds & Active Scripts Active Zantac (Ranitidine HCl) 150 Mg Tab 150 Mg PO DAILY Review of Systems Except as stated in HPI: all other systems reviewed are Neg Physical Exam Narrative GENERAL: Well-developed well-nourished male in no acute distress SKIN: Warm and dry. HEAD: Atraumatic. Normocephalic. EYES: Pupils equal and round. No scleral icterus. No injection or drainage. ENT: No nasal bleeding or discharge. Mucous membranes pink and moist. NECK: Trachea midline. No JVD. CARDIOVASCULAR: Regular rate and rhythm. No murmur appreciated. RESPIRATORY: No accessory muscle use. Clear to auscultation. Breath sounds equal bilaterally. GASTROINTESTINAL: Abdomen soft, non-tender, nondistended. Hepatic and splenic margins not palpable. MUSCULOSKELETAL: No obvious deformities. No CVA tenderness NEUROLOGICAL: Awake and alert. No obvious cranial nerve deficits. Motor grossly within normal limits. Normal speech. Data Data Last Documented VS Vital Signs Date Time Temp Pulse Resp B/P (MAP) Pulse Ox O2 Delivery O2 Flow Rate FiO2 03/29/18 11:31 18 03/29/18 11:25 97.8 84 129/81 (97) 97 Orders Orders Complete Blood Count With Diff (03/29/18 11:37) Comprehensive Metabolic Panel (03/29/18 11:37) Lipase (03/29/18 11:37) Urinalysis - C+S If Indicated (03/29/18 11:37) Iv Access Insert/Monitor (03/29/18 11:37) Pantoprazole Inj (Protonix Inj) (03/29/18 11:45) Al-Mag Hy-Si 40-40-4 Mg/Ml Liq (Mag-Al P (03/29/18 11:45) Lidocaine 2% Viscous (Xylocaine 2% Visco (03/29/18 11:45) Labs Laboratory Tests Test 03/29/18 11:30 [facility] Medical Decision Making Medical Screen Exam Complete: Yes Emergency Medical Condition: Yes Medical Record Reviewed: Yes Differential Diagnosis Pancreatitis, duodenal ulcer, peptic ulcer disease, gastritis, gastroenteritis Narrative Course Plan is for basic lab work. The patient will be given Protonix and a GI cocktail. Shortly after patient arrived he told the nurse that he had a "emergency" that he had to go take care of and he said that he was going to return. The patient left prior to my being able to discuss with him the risks of leaving AMA. He is quite stable however as his abdomen examination was benign. Diagnosis Primary Impression: Left against medical advice Patient Instructions: General Instructions Departure Forms: Tests/Procedures Med/Other Pt SpecificInfo: No Change to Meds Disposition: 01 DISCHARGE HOME Condition: Stable Steven Ahn March 29, 2018 12:03
[2018-03-29 12:11] LABS: BILIRUBIN, URINE NEG (NEG); GLUCOSE,URINE NEG (NEG); KETONE, URINE NEG (NEG); NITRITE,URINE NEG (NEG); URINE COLOR YELLOW (YELLW/STRAW); URINE LEUKOCYTE ESTERASE NEG (NEG)
[2018-03-29 12:17] LABS: BLOOD, URINE TRACE (NEG)
[2018-03-29 12:18] LABS: MUCUS URINE FEW /lpf (OCC)
== END 2018-03-29 12:06 | disposition left against medical advice (07) ==
LOC: NEPD 11:22
DX: R10.13 Epigastric pain (principal); E11.9 Type 2 diabetes mellitus without complications; Z88.2 Allergy status to sulfonamides; Z79.899 Other long term (current) drug therapy
CPT/HCPCS: 81001; 99283